=== PATIENT | male | born 1935 | race Two or more races ===

== ENCOUNTER 2017-01-09 01:41 | Inpatient (IN) | payer MEDICARE, OTHER ==
[~2017-01-09] VITALS: Ht 175.3 cm; Wt 72.0 kg
[2017-01-09] VITALS (18 sets, daily range): BP systolic 100–138; BP diastolic 49–73; PULSE 94–116; RESP 17–28; TEMP 99.7; Ht 175.3 cm; Wt 72.0 kg
[~2017-01-09 01:41] MED LIST: ACET325T33 PO; ASC500 PO; ASPI-664 PO; ATEN-51 PO; BISA10SU75 PR; CIPR500T4 PO; CRAN450C PO; DOCU-144 PO; DONE10TA7 PO; FAMO-18 PO; FLEETPED PR; HYDR-3672 PO; HYDR-906 PO; LISI20TA11 PO; LORA0.5T PO; MAGN400O4 PO; MIRT7.5T8 PO; MULTI PO; OLAN2.5T4 PO; SENN-53 PO; SERT50TA PO; TAMS0.4C2 PO; TYL500 PO
[2017-01-09] MEDS ORDERED: morphine 2 MG INJ IV STA (01:46)
[2017-01-09] MEDS ORDERED: SOD CHLORIDE 0.9% 500 ML IV STA (01:46)
[2017-01-09] MEDS ORDERED: ONDANSETRON 4 MG INJ IV STA (01:53)
[2017-01-09] MEDS ORDERED: ONDANSETRON 4 MG INJ ONE (01:53)
[2017-01-09] MEDS ORDERED: ACETAMINOPHEN 650 MG SUPP PR ONE (02:00)
--- NOTE | 2017-01-09 02:37 | ERA ---
ER Documentation Chief Complaint Date/Time DATE: 01/09/17 TIME: 02:33 Chief Complaint SOB w/ gurgling and vomit, on hospice, DNR HPI This is an 81-year-old male on hospice with a history of chronic dementia who presents with a gurgling sound and vomiting. The patient presents from home, he has a home health care hospice nurse. The patient has advanced directive that clearly states hospice care, DNR, DNI, comfort measures only. It appears that the family member became emotionally upset and called 911 because the patient's respiratory distress. Upon arrival the patient has emesis, respiratory distress. The patient is nonverbal. Remainder of HPI is limited. ROS All systems reviewed and are negative except as per history of present illness. Medications Home Meds Active Scripts Ciprofloxacin Hcl* (Ciprofloxacin Hcl*) 500 Mg Tablet, 500 MG PO BID for 7 Days , TAB Prov:MARIAN LEONARD DO 08/11/16 Reported Medications Acetaminophen* (Tylenol*) 500 Mg Tab, 1000 MG PO Q4H Y for PAIN 4-02/22, TAB 08/11/16 Acetaminophen* (Tylenol*) 325 Mg Tablet, 650 MG PO Q4H Y for MILD PAIN LEVEL 1-3 , TAB 08/11/16 Sennosides* (Senna Lax*) 8.6 Mg Tablet, 1 TAB PO QHS, TAB 08/11/16 Mirtazapine* (Mirtazapine*) 7.5 Mg Tablet, 7.5 MG PO HS, TAB 08/11/16 Famotidine* (Pepcid*) 20 Mg Tablet, 20 MG PO BID, #60 TAB 08/11/16 Hydrocodone/Acetaminophen ([place] 5-325 Tablet) 1 Each Tablet, 1 EACH PO Q4 Y for PAIN 7-910, TAB 08/11/16 Multivitamins* (Theragran*) 1 Tab Tab, 1 TAB PO DAILY, TAB 08/11/16 Magnesium Hydroxide* (Milk Of Magnesia*) 400 Mg/5 Ml Oral.susp, 30 ML PO DAILY Y for PRN, ML 08/11/16 Tamsulosin Hcl* (Tamsulosin Hcl*) 0.4 Mg Cap.er.24h, 0.4 MG PO BID, CAP 08/11/16 Sod Phosphate/Sod Biphosphate* (Fleet* Enema Pediatric) 66.6 Ml Soln, 66.6 ML SC DAILY Y for CONSTIPATION, ENEMA 08/11/16 Bisacodyl* (Bisacodyl*) 10 Mg Supp, 10 MG SC DAILY Y for PRN, SUPP 08/11/16 Cranberry Fruit Concentrate (CRANBERRY) 450 Mg Capsule, 450 MG PO BID, CAP 08/11/16 Docusate Sodium* (Colace*) 100 Mg Capsule, 200 MG PO QHS, #30 CAP HOLD FOR LBM. 100MG GIVE 2 CAP. 08/11/16 Lorazepam* (Lorazepam*) 0.5 Mg Tablet, 0.5 MG PO DAILY Y for ANXIETY, TAB 08/11/16 Olanzapine* (Zyprexa*) 2.5 Mg Tablet, 2.5 MG PO DAILY, #30 TAB 08/11/16 Sertraline Hcl* (Zoloft*) 50 Mg Tablet, 50 MG PO DAILY, #30 TAB 08/11/16 Lisinopril* (Lisinopril*) 20 Mg Tablet, 20 MG PO BID, #30 TAB HOLD IF SBP BELOW 110 OR HR BELOW 60 08/11/16 Ascorbic Acid (Vitamin C) 500 Mg Tab, 500 MG PO DAILY, TAB 08/11/16 Atenolol* (Atenolol*) 25 Mg Tablet, 25 MG PO DAILY, #30 TAB HOLD IFSBP [id number] OR HR BELOW60 08/11/16 Aspirin* (Aspirin* EC) 81 Mg Tablet.dr, 81 MG PO DAILY, TAB 08/11/16 Donepezil* (Donepezil*) 10 Mg Tablet, 10 MG PO DAILY, #30 TAB 08/11/16 Hydralazine Hcl* (Apresoline*) 50 Mg Tab, 100 MG PO TID, #180 TAB HOLD IF SBP BELOW 110 OR HR BELOW 60 08/11/16 Allergies Allergies: Coded Allergies: No Known Drug Allergies (Verified Allergy, Mild, 08/11/16) PMhx/Soc History of Surgery: Yes (RIGHT HIP SX) Anesthesia Reaction: No Hx Neurological Disorder: Yes (DEMENTIA) Hx Respiratory Disorders: No Hx Cardiac Disorders: Yes (HTN, H/O SC 1984) Hx Psychiatric Problems: Yes (DEMENTIA) Hx Miscellaneous Medical Probl: Yes (BPH, hospice, DNR/DNI) Hx Alcohol Use: No Hx Substance Use: No Hx Tobacco Use: No Smoking Status: Unknown if ever smoked FmHx Family History: No diabetes Physical Exam Vitals Vital Signs Date Time Temp Pulse Resp B/P Pulse Ox O2 Delivery O2 Flow Rate FiO2 01/09/17 03:42 99.7 120 26 117/64 98 BIPAP 01/09/17 03:19 134 32 106/62 100 01/09/17 02:16 132 40 162/89 100 BIPAP 01/09/17 02:00 143 100 50 01/09/17 01:51 101.3 156 35 462/89 76 01/09/17 01:50 Non Rebreather 15.0 Physical Exam General: Respiratory distress, audible rhonchi Head: Normocephalic, atraumatic. Eyes: Pupils equally reactive, EOM intact ENT: Dry mucous membranes Neck: Supple, no lymphadenopathy Respiratory: Tachypnea, rhonchi bilaterally Cardiovascular: Tachycardia, no murmurs, rubs, or gallops Abdominal: Soft, non-tender, non-distended, no peritoneal signs : Deferred MSK: No edema, no unilateral swelling Neurologic: Chronic dementia, limited movement, Skin: No rash Psych: Normal mood Results 24 hrs Current Medications Medications (Trade) Dose Ordered Sig/Fifi Route PRN Reason Start Time Stop Time Status Last Admin Dose Admin Sodium Chloride (NS) 500 ml @ 500 mls/hr Q1H STAT IV 01/09/17 01:46 01/09/17 02:45 DC 01/09/17 01:57 Morphine Sulfate (morphine) 2 mg ONCE STAT IV 01/09/17 01:46 01/09/17 01:48 DC 01/09/17 01:57 Acetaminophen (Tylenol Supp) 650 mg ONCE ONCE SC 01/09/17 02:00 01/09/17 02:01 DC 01/09/17 01:56 Ondansetron HCl (Zofran Inj) 4 mg ONCE STAT IV 01/09/17 01:53 01/09/17 01:54 DC 01/09/17 02:06 Ondansetron HCl (Zofran Inj) 4 mg STK-MED ONCE .ROUTE 01/09/17 01:53 01/09/17 01:54 DC Ondansetron HCl (Zofran Inj) 4 mg ER BRIDGE PRN IV NAUSEA AND/OR VOMITING 01/09/17 03:30 01/10/17 03:29 Acetaminophen (Tylenol Tab) 650 mg ER BRIDGE PRN PO MILD PAIN/FEVER 01/09/17 03:30 01/10/17 03:29 Procedures/MDM MEDICAL DECISION MAKING: The patient presents in hospice with respiratory distress, fever, tachypnea. Vomiting as well. His presentation is most consistent with likely aspiration event versus dying process. The patient has clear documentation of hospice care, DNR, DNI, comfort measures. It appears that the family member became upset and called 911. ER COURSE: Upon arrival there is no family available. The patient was placed on the monitor he was started on BiPAP he was given small bolus of fluid and given antipyretic and given morphine. This is in line with the patient's goals of care. The family arrived. Using an rn neonatal we had a prolonged, greater than 30 minute conversation about the goals of care. Initially the family was unsure about the definition of hospice. However, after prolonged conversation I believe that the patient's advanced directives aligned with the family's goals of care. The family does not want prolonged intervention, prolonged life is suffering. They prefer not to have laboratory testing, diagnostic imaging or invasive procedures. They prefer to continue with hospice care with supportive care in the emergency room including BiPAP, morphine, fluids. Based on these goals of care do not believe that empiric antibiotics are appropriate. We will continue to care for the patient with comfort measures alone. The family has confirmed that they wish to have the patient on hospice, and do not require or request laboratory testing, diagnostic imaging, interventions such as medications. I kept the patient and/or family informed of laboratory and diagnostic imaging results throughout the emergency room course. DISPOSITION PLAN: Admit to telemetry for further management, hospice care CONSULTATION: Accepting care team and consultations: I discussed the current laboratory data, diagnostic imaging and emergency care provided. Admitting team: Dr. Lackey will admit the patient given hospice Admitting team indication: Insurance directed Departure Diagnosis: Primary Impression: Acute respiratory failure Qualified Code: J96.01 - Acute respiratory failure with hypoxia Additional Impressions: DNR (do not resuscitate) DNI (do not intubate) Condition: Serious (Hospice) KIRSTEN SANTANA MD Jan 09, 2017 02:36
[2017-01-09] MEDS ORDERED: ONDANSETRON 4 MG INJ IV PRN (03:30)
[2017-01-09] MEDS ORDERED: ACETAMINOPHEN 325 MG TAB PO PRN (03:30)
[2017-01-09] MEDS ORDERED: morphine 2 MG INJ IV PRN (04:30)
[2017-01-09] MEDS ORDERED: ACETAMINOPHEN 650 MG SUPP PR PRN (04:30)
[2017-01-09] MEDS: ALBUTEROL/IPRATROPIUM (NEB) 3 ML AMP HHN SCH ×4 (05:20→21:28)
[2017-01-09] MEDS: DEXTROSE 5%-0.45% NACL 1,000 ML IV SCH (12:56)
--- NOTE | 2017-01-09 13:01 | HP ---
DATE OF ADMISSION: 01/09/2017 CHIEF COMPLAINT: Shortness of breath. HISTORY OF PRESENT ILLNESS: History was obtained from medical record and from the patient's an d ER physician, Dr. Jona Lance. HISTORY OF PRESENT ILLNESS: Patient is an 81-year-old gentleman with severe dementia, hypertension, history of right femoral neck fracture, history of right hip osteoarthritis. The patient is statu s post right hemiarthroplasty. The patient was being cared for at home by family and was recently a dmitted under hospice care. Yesterday, patient was brought into ER as he was short of breath and huff d chest congestion. The patient was DNR and DNI and family requested comfort measures only. Theref ore, labs were not drawn as per family request and no other diagnostic studies were done. The patie nt was put on BiPAP due to respiratory failure and hypoxemia. The patient's O2 sat was 76% upon arr ival. The patient had a fever of 101.3. The patient did not have any vomiting. The patient accord ing to , had difficulty in expectorating his sputum. The patient did not have any vomiting, no reported bleeding from any site. No reported seizures. No reported abdominal distention. The connor ent has mid abdominal incisional hernia. No reported leg edema. The patient did not have hematuria . Mercer catheter was placed in the ER, although the patient's urine output has declined. The connor ent's urine output according to has declined over the past several days. REVIEW OF SYSTEMS: Could not be obtained. PAST MEDICAL HISTORY: As stated above. PAST SURGICAL HISTORY: Status post umbilical hernia repair, inguinal hernia repair, history of poss ible bowel obstruction status post surgery several years ago, right hip surgery. ALLERGIES: None. MEDICATIONS AT HOME: The patient was on: 1. Aricept. 2. Flomax. 3. Atenolol. 4. Hydralazine. 5. Lisinopril. 6. Tylenol. 7. Aspirin. 8. [place]. 9. Ativan. 10. Remeron. 11. Zyprexa. 12. ____ 13. Pepcid. 14. Senna. 15. Vitamin D. 16. Multivitamins. FAMILY HISTORY: Noncontributory for patient's condition. PHYSICAL EXAMINATION: GENERAL: The patient is lethargic. No useful communication possible. VITAL SIGNS: In the ER, blood pressure 162/89, temperature 101.3, pulse 56 respirations 35, pulse o x 76%. The patient was placed on BiPAP. HEENT: Atraumatic, normocephalic. Conjunctivae and lids are normal. Oropharynx examination was de ferred due to BiPAP. NECK: No mass, no JVD. CHEST: Revealed coarse breath sounds. CARDIOVASCULAR: S1, S2 normal. No murmur. ABDOMEN: Soft, nondistended, nontender. No palpable mass, no ____. EXTREMITIES: No leg edema. Pedal pulses palpable. SKIN: Without acute rash. NEUROLOGIC: The patient is lethargic and no useful communication was possible. LABORATORY DATA: Labs and radiological studies were not done were not done as per family request. IMPRESSION: 1. Acute respiratory failure, possibly due to probable aspiration pneumonia. 2. Hypertension. 3. Severe Alzheimer dementia. 4. Depression. 5. Benign prostatic hypertrophy. PLAN: Patient was placed on BiPAP and family requested comfort measures only. The patient will be put on breathing treatment, IV morphine, IV Zofran and Tylenol. I had a lengthy discussion with e patient's family about further goals of care. Patient has been made DNR. The patient remains cri tically ill and I have recommended inpatient hospice eval for the patient to provide comfort care an d the patient's has agreed. marble chip terrazzo worker, Susana, was also present. She also interpreted fo r me. The patient's family requested IV fluids which will be started and further recommendations w ill depend on patient's hospital course and after hospice eval. Dictated By: BRITTANIE RODRIGES/RUBA Conf#: [id number] DID#: [id number]
[2017-01-09] MEDS ORDERED: ARTIFICIAL TEARS 15 ML OPH BOTH EYES PRN (15:30)
[2017-01-09] MEDS ORDERED: DIMETHICONE STICK TOP PRN (15:30)
[2017-01-09] MEDS: morphine (DRIP) 100 MG/100 ML 100 ML IV SCH (17:54)
[2017-01-09] MEDS: DIMETHICONE STICK TOP PRN (22:29)
[2017-01-09] MEDS: ARTIFICIAL TEARS 15 ML OPH BOTH EYES PRN (22:29)
[2017-01-09] MEDS: ATROPINE 1% 5 ML OPH SL PRN (22:30)
[2017-01-10] VITALS (13 sets, daily range): BP systolic 78–109; BP diastolic 48–59; PULSE 92–167; RESP 17–34
[2017-01-10] MEDS: ALBUTEROL/IPRATROPIUM (NEB) 3 ML AMP HHN SCH ×5 (01:50→23:36)
[2017-01-10] MEDS: DIMETHICONE STICK TOP PRN (04:52)
[2017-01-10] MEDS: ATROPINE 1% 5 ML OPH SL PRN (04:52)
[2017-01-10] MEDS: ARTIFICIAL TEARS 15 ML OPH BOTH EYES PRN (04:52)
[2017-01-10] MEDS: DEXTROSE 5%-0.45% NACL 1,000 ML IV SCH (08:06)
--- NOTE | 2017-01-10 17:41 | PN ---
DATE: 01/10/2017 SUBJECTIVE: Follow up on aspiration pneumonia, acute respiratory failure, severe dementia. The pat ient continues to decline and has become increasingly short of breath. BiPAP was removed as per fam bernardo request. The patient is currently on nasal cannula, also spiking fever and is tachycardic. The patient had a T maximum of 103. No reported vomiting. Patient's urine output continues to decline . PHYSICAL EXAMINATION: GENERAL: The patient is nonverbal, has coarse breath sound. VITAL SIGNS: T-max 103.1, pulse 163, respirations 34, blood pressure 109/59, O2 saturation 100% on 2 liters. NECK: No mass. CHEST: Revealed coarse breath sounds. CARDIOVASCULAR: S1, S2 normal. Sinus tachycardia. ABDOMEN: Soft, nondistended. EXTREMITIES: No leg edema. NEUROLOGIC: The patient is nonverbal. IMPRESSION: 1. Acute respiratory failure due to aspiration pneumonia. 2. Severe dementia. PLAN: Patient's morphine dose will be increased by another milligram an hour. Plan of care discuss ed with several of patient's family members present in the room. Will continue to optimize comfort care. I also discussed about discontinuing IV fluid and they all agreed. Therefore, patient will b e only on morphine drip and the dose will be optimized to provide comfort. Dictated By: BRITTANIE RODRIGES/RUBA Conf#: [id number] DID#: [id number]
[2017-01-11] VITALS: BP 77/48; RESP 25
[2017-01-11 00:15] VITALS: PULSE 141
[2017-01-11] MEDS: morphine (DRIP) 100 MG/100 ML 100 ML IV SCH (00:49)
[2017-01-11 04:08] VITALS: PULSE 128
[2017-01-11] MEDS: ALBUTEROL/IPRATROPIUM (NEB) 3 ML AMP HHN SCH (08:00)
[2017-01-11 08:04] VITALS: PULSE 120
--- NOTE | 2017-01-11 11:20 | PN ---
Date/Time of Note Date/Time of Note DATE: 01/11/17 TIME: 11:19 Assessment/Plan VTE Prophylaxis VTE Prophylaxis Intervention: other Lines/Catheters IV Catheter Type (from Nrsg): Peripheral IV Urinary Cath still in place: Yes Reason Cath still needed: skin wounds contaminated by urine Assessment/Plan Chief Complaint/Hosp Course 1. Acute respiratory failure due to aspiration pneumonia. - patient on hospice 2. Severe dementia. Problems: Subjective 24 Hr Interval Summary Free Text/Dictation Patient is comfortable but family is angry regarding patient being on hospice Exam/Review of Systems Vital Signs Vitals Vital Signs Date Time Temp Pulse Resp B/P Pulse Ox O2 Delivery O2 Flow Rate FiO2 01/11/17 08:04 120 01/11/17 00:00 98.7 25 77/48 77 01/10/17 21:16 2.0 01/10/17 17:14 Nasal Cannula 01/10/17 09:21 100 Intake and Output 01/10/17 01/10/17 01/11/17 14:59 22:59 06:59 Intake Total 600 ml 0 ml Output Total 20 ml 20 ml Balance 580 ml -20 ml Exam Constitutional: frail Head: atraumatic, normocephalic Respiratory: diminished breath sounds Cardiovascular: regular rate and rhythm Gastrointestinal: non-tender, soft Extremities: normal pulses Medications Medications Current Medications Morphine Sulfate (morphine) 2 mg Q2H PRN IV pain Last administered on 05:38; Admin Dose 2 MG; Start 01/09/17 at 04:30 Acetaminophen (Tylenol Supp) 650 mg Q4H PRN AR pain/fever Last administered on 01/09/17 22:29; Admin Dose 650 MG; Start 01/09/17 at 04:30 Atropine Sulfate 2 drop 2 drop Q2H PRN SL PRN SECRETIONS Last administered on 04:52; Admin Dose 2 DROP; Start 01/09/17 at 12:30 Morphine Sulfate/ Sodium Chloride (morphine) 100 ml @ 1 mls/hr TITRATE IV Last administered on 01/11/17 00:49; Admin Dose 4 MLS/HR; Start 01/09/17 at 15:30 JULIO FORTE Jan 11, 2017 11:20
[2017-01-11 12:03] VITALS: PULSE 111
== END 2017-01-11 15:40 | disposition expired | DRG 189 ==
LOC: E/R 01:41 → TEL 03:29
PROVIDERS: ADMIT Internal Medicine; ATTEND Internal Medicine
DX: J96.01 Acute respiratory failure with hypoxia (principal); J69.0 Pneumonitis due to inhalation of food and vomit; G30.9 Alzheimer's disease, unspecified; F02.80 Dementia in other diseases classified elsewhere, unspecified severity, without behavioral disturbance, psychotic disturbance, mood disturbance, and anxiety; Z66 Do not resuscitate; R11.10 Vomiting, unspecified; I10 Essential (primary) hypertension; F32.9 Major depressive disorder, single episode, unspecified; N40.0 Benign prostatic hyperplasia without lower urinary tract symptoms
CPT/HCPCS: 94640; 94660; 94664; 96374; 96375; 96376; J2270; J2405; J7040; J7042